=== PATIENT | male | born 1990 | race Caucasian/White ===

== ENCOUNTER 2022-01-29 22:42 | Emergency (ER) | payer SELFPAY ==
[2022-01-30] MEDS ORDERED: IBUPROFEN600 MG PO (01:44)
[2022-01-30] MEDS ORDERED: ZOFRAN ODT 4 MG4 MG PO (01:44)
== END 2022-01-30 02:22 | disposition home or self-care (01) ==
LOC: ER1 22:42
DX: S52.124A Nondisplaced fracture of head of right radius, initial encounter for closed fracture (principal); S82.62XA Displaced fracture of lateral malleolus of left fibula, initial encounter for closed fracture; S50.02XA Contusion of left elbow, initial encounter; S90.812A Abrasion, left foot, initial encounter; S80.212A Abrasion, left knee, initial encounter; S80.211A Abrasion, right knee, initial encounter; S52.502A Unspecified fracture of the lower end of left radius, initial encounter for closed fracture; V00.131A Fall from skateboard, initial encounter; F17.210 Nicotine dependence, cigarettes, uncomplicated; Y93.I9 Activity, other involving external motion; Y92.009 Unspecified place in unspecified non-institutional (private) residence as the place of occurrence of the external cause
CPT/HCPCS: 29105; 29125; 29515; 73070; 73130; 73590; 73630; 99283